=== PATIENT | male | born 1995 | race Caucasian/White ===

== ENCOUNTER → 2017-09-10 | Outpatient (CLI) | payer OTHER ==
--- NOTE | 2017-09-10 14:54 | DIAGNOSTIC IMAGING REPORT ---
L FOOT MIN 3 VIEWS ROUTINE CLINICAL HISTORY: Left foot pain. Navicular tenderness to palpation. No recent injury. COMPARISON: None FINDINGS: Tarsometatarsal joints are intact. No acute fracture within the left foot is identified. No osseous lesion is identified. There is no evidence for stress fracture. IMPRESSION: Unremarkable left foot radiographs. Electronically signed by: Beto Fischer M.D. 09/10/2017 2:53 PM Dictated Date/Time: 09/10/2017 2:51 PM
== END | disposition home or self-care (01) ==
LOC: C.RAD 14:27
PROVIDERS: ATTEND Student in an Organized Health Care Education/Training Program
DX: M79.672 Pain in left foot (principal)